=== PATIENT | female | born 1955 | race Caucasian/White ===

== ENCOUNTER 2021-02-14 13:01 | Emergency (ER) | payer BC, MEDICARE ==
[~2021-02-14] VITALS: Ht 165.1 cm; Wt 82.6 kg
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
[2021-02-14 15:45] VITALS: BP 158/92
--- NOTE | 2021-02-14 16:56 | NUR ---
Patient discharged to home in stable condition. Written and verbal after care instructions given. Patient verbalizes understanding of instruction.
== END 2021-02-14 16:56 | disposition home or self-care (01) ==
LOC: ER 13:29
DX: S00.03XA Contusion of scalp, initial encounter (principal); I10 Essential (primary) hypertension; E78.5 Hyperlipidemia, unspecified; E11.9 Type 2 diabetes mellitus without complications; Y08.89XA Assault by other specified means, initial encounter; Y93.89 Activity, other specified; Y92.89 Other specified places as the place of occurrence of the external cause; Y99.8 Other external cause status
CPT/HCPCS: 70450-TC